=== PATIENT | female | born 1965 | race African-American/Black ===

== ENCOUNTER 2023-11-24 14:56 | Emergency (ER) | payer SELFPAY ==
[~2023-11-24] VITALS: Ht 165.1 cm; Wt 64.0 kg
[2023-11-24 15:04] VITALS: O2SAT 100
[2023-11-24] MEDS: ACETAMINOPHEN 500MG TABLET PO ONE (17:07)
[2023-11-24] MEDS: AMLODIPINE 10MG TABLET PO ONE (17:08)
[2023-11-24 17:11] VITALS: BP 136/83; PULSE 65; RESP 18; TEMP 98.7
== END 2023-11-24 18:32 | disposition home or self-care (01) ==
LOC: ER 14:56
DX: R41.3 Other amnesia (principal)
CPT/HCPCS: 99284